=== PATIENT | female | born 1995 | race Caucasian/White ===

== ENCOUNTER 2018-04-30 21:37 | Inpatient (IN) ==
--- NOTE | 2018-04-30 22:03 | ED ---
HPI General Chief Complaint: Diabetic Stated Complaint: Diabetic complaint Time Seen by Provider: 04/30/18 21:47 Source: patient Mode of arrival: ambulatory Limitations: no limitations History of Present Illness HPI narrative: 22-year-old female complains of dizziness, nausea, headache, blurred vision, abdominal pain. Patient started having intermittent nausea and dizziness for the past 2 months. Patient states that the symptom is worse today. Patient started having mild aching headache frontal headache tonight. Patient complains of blurry vision today also. Patient states that she has intermittent abdominal cramping for the past 2 weeks. Patient denies any vomiting or diarrhea. Patient denies any dysuria frequency. Patient denies any vaginal discharge or bleeding. Patient is not sure of being . Patient has history of diabetes and on insulin. Patient status post cholecystectomy. Patient states that her fasting blood sugar this morning was 190. Patient states that her blood sugar during the daytime for the past several days with in the 180s range. Patient normally on Lantus and sliding scale at home. Patient states that she ran out of her Lantus 2 weeks ago. Patient has been covering her blood sugar with regular insulin sliding scale. MD complaint: Reports abdominal pain Onset (ago): week(s) Pain Consistency: intermittent Location: Reports diffuse Severity: mild Severity scale (1-10): 5 Quality: Reports cramping Radiation: Reports none Migration to: Reports no migration Relieving factors: nothing Exacerbating factors: nothing Associated symptoms: Reports nausea Related Data Home Medications Medication Instructions Recorded Confirmed insulin glargine [Lantus U-100 30 unit SUBCUT HS 03/04/18 04/30/18 Insulin] insulin aspart U-100 [Novolog 1 sliding scale dose SUBCUT UD 04/03/18 04/30/18 U-100 Insulin aspart] Allergies Allergy/AdvReac Type Severity Reaction Status Date / Time codeine Allergy Intermediate Dizziness Verified 04/30/18 22:29 Penicillins Allergy Intermediate Hives Verified 04/30/18 22:29 Sulfa (Sulfonamide Allergy Intermediate Hives Verified 04/30/18 22:29 Antibiotics) Review of Systems ROS: all other systems reviewed are negative PMFSH Medical History Medical History Hemorrhoids (Acute) Lichen sclerosus (Acute) Diabetes (Acute) Surgical History Surgical History Hx laparoscopic cholecystectomy (Acute) Hx of hand surgery (Acute) Hx of tonsillectomy (Acute) Social History Social History Substance History: No History of Abuse Second Hand Smoke Exposure: No Smoking Status: Former smoker How Often Do You Have a Drink Containing Alcohol: Monthly or less Immunization History Tetanus Immunization Year if Known: 2016 Exam Narrative Exam Narrative: GENERAL: Well-nourished, well-developed patient. SKIN: Focused skin assessment warm/dry. HEAD: Normocephalic. EYES: No scleral icterus. No injection or drainage. NECK: Supple, trachea midline. No JVD or lymphadenopathy. CARDIOVASCULAR: Regular rate and rhythm without murmurs, gallops, or rubs. RESPIRATORY: Breath sounds equal bilaterally. No accessory muscle use. GASTROINTESTINAL: Abdomen soft, nondistended. MUSCULOSKELETAL: No cyanosis, or edema. BACK: Nontender without obvious deformity. No CVA tenderness. Course Initial Documented Vital Signs Temperature 97.2 F L 04/30/18 21:40 Pulse Rate 91 H 04/30/18 21:40 Respiratory Rate 20 04/30/18 21:40 Blood Pressure 119/74 04/30/18 21:40 Pulse Oximetry 100 04/30/18 21:40 Last Documented Vital Signs Temperature 97.2 F L 04/30/18 21:40 Pulse Rate 88 04/30/18 22:05 Respiratory Rate 20 04/30/18 21:40 Blood Pressure 119/74 04/30/18 21:40 Pulse Oximetry 100 04/30/18 21:40 Medical Decision Making [facility] Narrative Medical decision making narrative: 22-year-old female with headache, nausea, dizziness, blurred vision, abdominal pain. History of diabetes. Insulin bolus and drip started. Potassium 20 mEq p.o. given. Potassium 20 mEq IV given. Medical Screen Exam Complete: Yes Emergency Medical Condition: Yes Differential Diagnosis Differential Diagnosis: Differential diagnosis including viral syndrome, hyperglycemia, DKA, dehydration, electrolyte imbalance, gastritis, PUD, pancreatitis, colitis, UTI, pyelonephritis, nephrolithiasis. Lab Data Result diagrams: 04/30/18 22:15 04/30/18 22:15 POC Results POC Urine Results Negative Lab Results 04/30/18 04/30/18 04/30/18 Range/Units 22:05 22:07 22:15 CBC w Diff Auto diff final WBC 4.1 (4.0-11.0) th/mm3 RBC 5.24 (4.00-5.30) mil/mm3 Hgb 14.6 (11.6-15.3) gm/dL Hct 45.0 (35.0-46.0) % MCV 85.9 (80.0-100.0) fL MCH 27.9 (27.0-34.0) pg MCHC 32.5 (32.0-36.0) % RDW 14.8 (11.6-17.2) % Plt Count 210 (150-450) th/mm3 MPV 9.9 (7.0-11.0) fL Neut % (Auto) 69.1 (16.0-70.0) % Lymph % (Auto) 23.8 (9.0-44.0) % [place] % (Auto) 5.3 (0.0-8.0) % Eos % (Auto) 1.0 (0.0-4.0) % Baso % (Auto) 0.8 (0.0-2.0) % Neut # (Auto) 2.9 (1.8-7.7) th/mm3 Lymph # (Auto) 1.0 (1.0-4.8) th/mm3 [place] # (Auto) 0.2 (0.0-0.9) th/mm3 Eos # (Auto) 0.0 (0.0-0.4) th/mm3 Baso # (Auto) 0.0 (0.0-0.2) th/mm3 WBC Differential . Differential Comment . Puncture Site Patient Temperature VBG pH (7.360-7.400) VBG pCO2 (44-48) mmHG VBG pO2 (35-40) mmHG VBG HCO3 (22-26) mmol/L VBG O2 Saturation (70-76) % VBG O2 Content (9.0-17.0) Vol % VBG Base Excess (-2-2) mmol/L VBG Carboxyhemoglobin (0-4) % VBG Methemoglobin (0-2) % Hemoglobin (12.0-16.0) G/DL Inspired O2 % Critical Value Sodium (136-145) meq/L Potassium (3.5-5.1) meq/L Chloride (98-107) meq/L Carbon Dioxide (21.0-32.0) meq/L Anion Gap (5-15) meq/L BUN (7-18) mg/dL Creatinine (0.50-1.00) mg/dL Estimated GFR (>89) mL/min POC Glucose Greater than 600 H* Greater than 600 H* (68-110) mg/dl Calcium (8.5-10.1) mg/dL Total Bilirubin (0.2-1.0) mg/dL AST (15-37) U/L ALT (10-53) U/L Total Protein (6.4-8.2) g/dL Albumin (3.4-5.0) g/dL Lipase (73-393) U/L Beta-Hydroxybutyric Acd (0.00-0.39) mmol/L Urine Color (Yellw/Straw) Urine Clarity (Clear) Urine pH (5.0-8.5) Ur Specific [place] (1.002-1.035) Urine Protein (Neg-Trace) mg/dL Urine Glucose (UA) (Negative) mg/dL Urine Ketones (Negative) mg/dL Urine Occult Blood (Negative) Urine Nitrate (Negative) Urine Bilirubin (Negative) Urine Urobilinogen (Less than 2) mg/dL Ur Leukocyte Esterase (Negative) Urine RBC (0-3) /hpf Urine WBC (0-5) /hpf Ur Squamous Epith Cells (0-5) /hpf Urine Yeast (None) /hpf Micro UA Comment Ur Microscopic Review Urine Culture Comments 04/30/18 04/30/18 04/30/18 Range/Units 22:15 22:15 22:38 CBC w Diff WBC (4.0-11.0) th/mm3 RBC (4.00-5.30) mil/mm3 Hgb (11.6-15.3) gm/dL Hct (35.0-46.0) % MCV (80.0-100.0) fL MCH (27.0-34.0) pg MCHC (32.0-36.0) % RDW (11.6-17.2) % Plt Count (150-450) th/mm3 MPV (7.0-11.0) fL Neut % (Auto) (16.0-70.0) % Lymph % (Auto) (9.0-44.0) % Cors[place] % (Auto) (0.0-8.0) % Eos % (Auto) (0.0-4.0) % Baso % (Auto) (0.0-2.0) % Neut # (Auto) (1.8-7.7) th/mm3 Lymph # (Auto) (1.0-4.8) th/mm3 [place] # (Auto) (0.0-0.9) th/mm3 Eos # (Auto) (0.0-0.4) th/mm3 Baso # (Auto) (0.0-0.2) th/mm3 WBC Differential Differential Comment Puncture Site L ac Patient Temperature 98.6 VBG pH 7.34 L (7.360-7.400) VBG pCO2 47 (44-48) mmHG VBG pO2 39 (35-40) mmHG VBG HCO3 24 (22-26) mmol/L VBG O2 Saturation 71 (70-76) % VBG O2 Content 13.4 (9.0-17.0) Vol % VBG Base Excess -0.7 (-2-2) mmol/L VBG Carboxyhemoglobin 1.5 (0-4) % VBG Methemoglobin 1.2 (0-2) % Hemoglobin 13.4 (12.0-16.0) G/DL Inspired O2 21 % Critical Value No Sodium 126 L (136-145) meq/L Potassium 3.9 (3.5-5.1) meq/L Chloride 92 L (98-107) meq/L Carbon Dioxide 26.2 (21.0-32.0) meq/L Anion Gap 8 (5-15) meq/L BUN 6 L (7-18) mg/dL Creatinine 1.20 H (0.50-1.00) mg/dL Estimated GFR 57 L (>89) mL/min POC Glucose (68-110) mg/dl Calcium 8.6 (8.5-10.1) mg/dL Total Bilirubin 0.5 (0.2-1.0) mg/dL AST 9 L (15-37) U/L ALT 21 (10-53) U/L Total Protein 7.4 (6.4-8.2) g/dL Albumin 3.8 (3.4-5.0) g/dL Lipase 207 (73-393) U/L Beta-Hydroxybutyric Acd 0.29 (0.00-0.39) mmol/L Urine Color Straw (Yellw/Straw) Urine Clarity Slightly cloudy (Clear) Urine pH 6.5 (5.0-8.5) Ur Specific [place] Less/equal 1.005 (1.002-1.035) Urine Protein Negative (Neg-Trace) mg/dL Urine Glucose (UA) 1000 or greater H (Negative) mg/dL Urine Ketones Negative (Negative) mg/dL Urine Occult Blood Small H (Negative) Urine Nitrate Negative (Negative) Urine Bilirubin Negative (Negative) Urine Urobilinogen 0.2 (Less than 2) mg/dL Ur Leukocyte Esterase Negative (Negative) Urine RBC 4-15 H (0-3) /hpf Urine WBC 6-8 H (0-5) /hpf Ur Squamous Epith Cells 0-5 (0-5) /hpf Urine Yeast Occasional H (None) /hpf Micro UA Comment Culture not ind Ur Microscopic Review Microscopic reviewed Urine Culture Comments Culture not ind Discharge Plan Discharge Disposition Patient Disposition: ED Admit(ED Internal Use Only) Discharge Details Diagnosis: Acute hyperglycemia, Acute hyponatremia Physicians Team ED Provider: Evaristo Rosas Primary Care Provider: Primary Care Physici,Beverly Rxs /Orders / Referrals /Forms Prescriptions: No Action insulin glargine [Lantus U-100 Insulin] 100 unit/mL Solution 30 unit SUBCUT HS RF: 0 insulin aspart U-100 [Novolog U-100 Insulin aspart] 100 unit/mL Solution 1 sliding scale dose SUBCUT UD RF: 0 Discharge Interventions Interventions: Vital Signs Last Done: 04/30/18 22:32 Status ED Status: Pending Admission
[2018-04-30 22:31] LABS: Bilirubin,Urine Negative (Negative); Clarity,Urine Slightly Cloudy (Clear); Leukocyte Esterase,Urine Negative (Negative); Nitrite,Urine Negative (Negative); PH,Urine 6.5 (5.0-8.5); Specific Gravity,Urine Less/Equal 1.005 (1.002-1.035); Urobilinogen,Urine 0.2 mg/dL (Less than 2)
[2018-04-30 22:32] LABS: Baso % (Auto) 0.8 % (0.0-2.0); Color,Urine Straw (Yellw/Straw); Hemoglobin 14.6 gm/dL (11.6-15.3); Lymph % (Auto) 23.8 % (9.0-44.0); Mean Corpuscular HGB Conc 32.5 % (32.0-36.0); Mean Corpuscular Hemoglobin 27.9 pg (27.0-34.0); Mean Corpuscular Volume 85.9 fL (80.0-100.0); Mean Platelet Volume 9.9 fL (7.0-11.0); Mono # (Auto) 0.2 th/mm3 (0.0-0.9); Mono % (Auto) 5.3 % (0.0-8.0); Neut # (Auto) 2.9 th/mm3 (1.8-7.7); Neut % (Auto) 69.1 % (16.0-70.0); Platelet Count 210 th/mm3 (150-450); Red Blood Count 5.24 mil/mm3 (4.00-5.30); Red Cell Distribution Width 14.8 % (11.6-17.2); White Blood Count 4.1 th/mm3 (4.0-11.0)
[2018-04-30 22:36] LABS: Squamous Epithelial Cell,Urine 0-5 /hpf (0-5)
[2018-04-30 22:38] LABS: Chloride 92 meq/L (98-107); Potassium 3.9 meq/L (3.5-5.1); Sodium 126 meq/L (136-145)
[2018-04-30 22:42] LABS: Calcium 8.6 mg/dL (8.5-10.1)
[2018-04-30 22:43] LABS: Albumin 3.8 g/dL (3.4-5.0); Anion Gap 8 meq/L (5-15); Blood Urea Nitrogen 6 mg/dL (7-18); Carbon Dioxide 26.2 meq/L (21.0-32.0); Lipase 207 U/L (73-393)
[2018-04-30 22:45] LABS: Alanine Aminotransferase 21 U/L (10-53); Aspartate Aminotransferase 9 U/L (15-37)
[2018-04-30 22:46] LABS: Beta Hydroxybutyric Acid 0.29 mmol/L (0.00-0.39); Glomerular Filtration Rate 57 mL/min (>89)
[2018-04-30 22:47] LABS: Total Protein 7.4 g/dL (6.4-8.2)
[2018-04-30 22:48] LABS: VBG Base Excess -0.7 mmol/L (-2-2); VBG Blood Gas Oxygen Content 13.4 Vol % (9.0-17.0); VBG PCO2 47 mmHG (44-48); VBG PH 7.34 (7.360-7.400); VBG PO2 39 mmHG (35-40)
[2018-04-30] MEDS ORDERED: Potassium Chlor 20 mEq Premix 20 MEQ/100 ML PIGGYBACK IV.SIG ONE (22:51)
[2018-04-30 22:57] LABS: Alkaline Phosphatase 96 U/L (45-117)
[2018-04-30 22:58] LABS: Glucose,Random 1048 mg/dL (74-106)
[2018-04-30] MEDS ORDERED: Sod Chloride 0.9% Inj 1,000 ML IV.SIG SCH (23:00)
[2018-04-30] MEDS ORDERED: Dextrose 50% in Water 50 ML Vial IV.PUSH PRN (23:02)
[2018-04-30] MEDS ORDERED: Insulin Regular (For Infusion) 100 UNIT in Sodium Chlor 0.9% Inj 99 ML IV.CONT PRN (23:14)
[2018-05-01] MEDS ORDERED: Acetaminophen 325 MG Tablet PO PRN (00:12)
[2018-05-01] MEDS ORDERED: Bisacodyl 10 MG Supp RECTAL PRN (00:12)
[2018-05-01] MEDS ORDERED: Sod Chloride 0.9% Inj 1,000 ML IV.CONT SCH (00:15)
[2018-05-01] MEDS ORDERED: Dextrose 50% in Water 50 ML Vial IV.PUSH PRN (00:46)
[2018-05-01] MEDS: Insulin NovoLOG Aspart Correctional Sugar Inj SQ SCH ×3 (03:37→11:50)
[2018-05-01] MEDS ORDERED: Chlorhexidine Gluconate 2% 1 Pack (2 Cloths) TOPICAL PRN (04:00)
[2018-05-01] MEDS ORDERED: Chlorhexidine Gluconate 2% 1 Pack (2 Cloths) TOPICAL SCH (04:00)
[2018-05-01 05:57] LABS: Anion Gap 8 meq/L (5-15); Blood Urea Nitrogen 7 mg/dL (7-18); Calcium 7.4 mg/dL (8.5-10.1); Carbon Dioxide 22.6 meq/L (21.0-32.0); Chloride 107 meq/L (98-107); Glucose,Random 249 mg/dL (74-106); Potassium 3.1 meq/L (3.5-5.1); Sodium 138 meq/L (136-145)
[2018-05-01 06:00] LABS: Glomerular Filtration Rate Greater Than 89 mL/min (>89)
[2018-05-01 06:11] LABS: Albumin 2.8 g/dL (3.4-5.0); Calcium-Albumin Corrected 8.4 mg/dL (8.5-10.1)
[2018-05-01] MEDS ORDERED: Senna/Docusate Sodium 8.6/50 MG Tablet PO SCH (09:00)
--- NOTE | 2018-05-01 10:22 | P.HPIM ---
History of Present Illness Primary Care Physician: No Primary Care Physician Chief Complaint: Nausea, vomiting History of Present Illness: 22-year-old female with known history of diabetes who usually is on Lantus 30 units daily and sliding scale NovoLog. Patient states that she ran out of Lantus approximately 1 week ago and has been trying to subsidize with the NovoLog. She started developing abdominal discomfort with nausea and vomiting so she came to the hospital for evaluation. Patient had workup done in emergency department and found to have uncontrolled diabetes with pseudohyponatremia. There were no signs of any acidosis or any anion gap. The patient was recommended admission to the hospital for further evaluation and management. At the time of seeing the patient she is only receiving subcutaneous insulin. She is laying in bed comfortable denies any abdominal discomfort. Patient has had excellent response to treatment during the hospital from initial blood glucose greater than 600 now down to 150. Patient indicates that she has been out of her insulin because of insurance reasons. Diagnosis (1) Acute hyperglycemia: (2) Acute hyponatremia: Inpatient Certification Inpatient Certification: I certify that the inpatient services were ordered in accordance with Medicare regulations governing the order. This includes certification that hospital inpatient services are reasonable and necessary and in the case of services not specified as inpatient-only under 42 CFR 419.22(n), that they are appropriately provided as inpatient services in accordance to with the 2-midnight benchmark under 43 CFR 412.3(e) Estimated Total Length of Stay (Days): 3 Plans for Post Hospital Care: Not yet determined Review of Systems Review of Systems: all other systems reviewed are negative Gastrointestinal: Reports nausea and Reports vomiting PMFSH Medical History Medical History Hemorrhoids (Acute) Lichen sclerosus (Acute) Diabetes (Acute) Surgical History Surgical History Hx laparoscopic cholecystectomy (Acute) Hx of hand surgery (Acute) Hx of tonsillectomy (Acute) Social History Social History Substance History: No History of Abuse Second Hand Smoke Exposure: No Smoking Status: Never smoker How Often Do You Have a Drink Containing Alcohol: Monthly or less Recent Travel in [place] within the Last 8 Weeks: No Recent Out of Country Travel within the Last 8 Weeks: No Immunization History Tetanus Immunization: Unable to Assess Tetanus Immunization Year if Known: 2015 Hx Influenza Vaccine This Season: No Medications and Allergies Allergies Allergy/AdvReac Type Severity Reaction Status Date / Time codeine Allergy Intermediate Dizziness Verified 04/30/18 22:29 Penicillins Allergy Intermediate Hives Verified 04/30/18 22:29 Sulfa (Sulfonamide Allergy Intermediate Hives Verified 04/30/18 22:29 Antibiotics) Active Medications: Active Medications Acetaminophen (Tylenol) 650 mg PO Q4H PRN PRN Reason: Temp > 100.4 Al Hydroxide/Mg Hydroxide (Milk Of Magnesia Liq) 30 ml PO Q12H PRN PRN Reason: Mild Constipation Bisacodyl (Dulcolax Supp) 10 mg RECTAL DAILY PRN PRN Reason: SEVERE CONSITIPATION Chlorhexidine Gluconate (Chlorhexidine 2% Cloth) 3 pack TOPICAL DAILY@0400 TANIYA Stop: 05/06/18 03:59 Last Admin: 05/01/18 04:41 Dose: 3 pack Chlorhexidine Gluconate (Chlorhexidine 2% Cloth) 3 pack TOPICAL DAILY@0400 PRN PRN Reason: Extra cloth needed Stop: 05/06/18 03:59 Dextrose (D50w Vial) 50 ml IV.PUSH UNSCH PRN PRN Reason: PER HYPOGLYCEMIA PROTOCOL Dextrose (D50w Vial) 50 ml IV.PUSH UNSCH PRN PRN Reason: PER HYPOGLYCEMIA PROTOCOL Glucagon (Glucagon Inj) 1 mg OTHER PRN PRN PRN Reason: for Hypoglycemia Protocol Insulin Human Regular 100 unit (/ Sodium Chloride) 100 mls @ 6 mls/hr IV.CONT TITRATE PRN; Protocol PRN Reason: See protocol Last Titration: 05/01/18 00:49 Dose: 0 units/hr, 0 mls/hr Sodium Chloride (Ns Inj) 1,000 mls @ 200 mls/hr IV.CONT .Q5H TANIYA Last Admin: 05/01/18 01:13 Dose: 200 mls/hr Insulin Aspart (Novolog Insulin Correctional Sugar Inj) 0 unit SQ ACHS AND 3AM TANIYA; Protocol Last Admin: 05/01/18 08:46 Dose: 1 unit Lactulose (Lactulose Liq) 30 ml PO DAILY PRN PRN Reason: SEVERE CONSITIPATION Ondansetron HCl (Zofran Inj) 4 mg IV.PUSH Q6H PRN PRN Reason: NAUSEA OR VOMITING Senna/Docusate Sodium (Destiny-Colace) 1 tab PO BID [facility] Last Admin: 05/01/18 08:47 Dose: Not Given Sennosides (Senokot) 17.2 mg PO Q12H PRN PRN Reason: Moderate Constipation Sodium Chloride (Ns Flush) 2 ml IV.FLUSH BID [facility] Last Admin: 05/01/18 08:46 Dose: Not Given Sodium Chloride (Ns Flush) 2 ml IV.FLUSH PRN PRN PRN Reason: FLUSH AFTER USING IV ACCESS Physical Exam Vital signs: Vital Signs 04/30/18 21:40 04/30/18 22:05 04/30/18 22:32 Temperature 97.2 F L Pulse Rate 91 H 88 86 Respiratory Rate 20 18 Blood Pressure 119/74 101/67 Pulse Oximetry 100 97 05/01/18 00:37 05/01/18 00:41 05/01/18 01:50 Temperature 98.7 F Pulse Rate 86 74 Respiratory Rate 18 20 Blood Pressure 87/68 L 95/60 L 92/64 L Pulse Oximetry 99 98 05/01/18 02:00 05/01/18 03:00 05/01/18 04:00 Temperature 98.1 F Pulse Rate 76 68 64 Respiratory Rate 12 12 12 Blood Pressure 95/60 L 95/58 L 99/51 L Pulse Oximetry 98 97 99 05/01/18 05:00 05/01/18 06:00 05/01/18 07:00 Temperature Pulse Rate 72 84 74 Respiratory Rate 12 12 13 Blood Pressure 112/70 106/66 91/56 L Pulse Oximetry 98 99 98 05/01/18 07:08 05/01/18 08:00 05/01/18 09:00 Temperature Pulse Rate 74 76 82 Respiratory Rate 9 L 10 L 14 Blood Pressure 91/56 L 84/54 L 97/56 L Pulse Oximetry 97 99 99 Intake & Output 04/30/18 05/01/18 05/01/18 18:59 06:59 18:59 Intake Total 1006 / 1006 Output Total 600 / 600 Balance 406 / 406 Weight 55.8 kg Intake: IV 1006 / 1006 NovoLIN R (IV Infusion) 100 6 / 6 UNIT In NS Inj 99 ML @ 6 UNITS/ HR 6 mls/hr IV.CONT TITRATE PRN Rx#:[id number] NS Inj 1,000 ML @ 1000 mls/hr 1000 / 1000 IV.SIG BOLUS TANIYA Rx#:[id number] Output: Urine 600 / 600 Other: Date of Last Bowel Movement 04/30/18 04/30/18 Weight On Admission 55.8 kg Narrative: GENERAL: Well-developed, well-nourished, in no acute distress. alert and orientated HEENT: Head is normocephalic without any lesions or masses noted. Facial features are symmetric. Eyes: Pupils equal round reactive to light. Extraocular muscles are intact. Conjunctivae were clear. Oropharyngeal: Pharynx without any erythema edema. Tongue is midline without deviation. Buccal mucosa is moist without any masses or lesions NECK: Supple without any masses. Trachea midline no deviation. No JVD, no bruits are appreciated CARDIAC: Regular rhythm, regular rate. S1/S2 are heard. No murmurs gallops or rubs. LUNGS: Clear to auscultation bilaterally. No wheeze, rhonchi or rales. No use of accessory muscles on inspiration or expiration. ABDOMEN: Soft, nontender. Nondistended. Bowel sounds heard in all 4 quadrants. No organomegaly or masses. Negative rebound, negative guarding EXTREMITIES: No edema, pulses are equal bilaterally. No cyanosis or clubbing NEUROLOGY: Mood and affect appear appropriate. Cranial nerves II through XII grossly intact. Muscle strength 5/5 in upper and lower extremities bilaterally. Deep tendon reflexes are 2+ in upper and lower extremities bilaterally. Results Labs CBC & Chem 7: 04/30/18 22:15 05/01/18 04:30 Caprini VTE Risk Assessment Caprini VTE Risk Assessment: No/Low Risk (score <= 1) Caprini Risk Assessment Model: Point Value = 1 Point Value = 2 Point Value = 3 Point Value = 5 Age 41-60 Minor surgery BMI > 25 kg/m2 Swollen legs Varicose veins or History of unexplained or recurrent spontaneous Oral contraceptives or hormone replacement Sepsis (< 1 month) Serious lung disease, including pneumonia (< 1 month) Abnormal pulmonary function Acute myocardial infarction Congestive heart failure (< 1 month) History of inflammatory bowel disease Medical patient at bed rest Age 61-74 Arthroscopic surgery Major open surgery (> 45 min) Laparoscopic surgery (> 45 min) Malignancy Confined to bed (> 72 hours) Immobilizing plaster cast Central venous access Age >= 75 History of VTE Family history of VTE Factor V Leiden Prothrombin [id number] Lupus anticoagulant Anticardiolipin antibodies Elevated serum homocysteine Heparin-induced thrombocytopenia Other congenital or acquired thrombophilia Stroke (< 1 month) Elective arthroplasty Hip, pelvis, or leg fracture Acute spinal cord injury (< 1 month) Prophylaxis Regimen: Total Risk Factor Score Risk Level Prophylaxis Regimen 0-1 Low Early ambulation 2 Moderate Order ONE of the following: *Sequential Compression Device (SCD) *Heparin 5000 units SQ BID 3-4 Higher Order ONE of the following medications: *Heparin 5000 units SQ TID *Enoxaparin/Lovenox 40 mg SQ daily (WT < 150 kg, CrCl > 30 mL/min) *Enoxaparin/Lovenox 30 mg SQ daily (WT < 150 kg, CrCl > 10-29 mL/min) *Enoxaparin/Lovenox 30 mg SQ BID (WT < 150 kg, CrCl > 30 mL/min) AND/OR *Sequential Compression Device (SCD) 5 or more Highest Order ONE of the following medications: *Heparin 5000 units SQ TID (Preferred with Epidurals) *Enoxaparin/Lovenox 40 mg SQ daily (WT < 150 kg, CrCl > 30 mL/min) *Enoxaparin/Lovenox 30 mg SQ daily (WT < 150 kg, CrCl > 10-29 mL/min) *Enoxaparin/Lovenox 30 mg SQ BID (WT < 150 kg, CrCl > 30 mL/min) AND *Sequential Compression Device (SCD) Assessment and Plan (1) Acute hyperglycemia: Code(s): R73.9 - Hyperglycemia, unspecified Status: Acute (2) Acute hyponatremia: Code(s): E87.1 - Hypo-osmolality and hyponatremia Status: Acute Plan Acute hyperglycemia in a patient with known diabetes type 1 Secondary to ran out of her Lantus insulin due to financial/insurance reasons Status post minimal use of IV insulin in the emergency department Accu-Cheks with sliding scale insulin We will start Levemir Diabetic diet The patient's Accu-Cheks are under 300, patient tolerating diet, patient can be discharged. [facility] Hyponatremia Secondary to pseudohyponatremia from uncontrolled diabetes DVT prevention Low risk, early ambulation Discharge Planning: Discharge home in stable condition Activity: Ad rohith. Diet: Diabetic diet Medication per medication reconciliation Follow-up with primary medical doctor in 1 week H&P: Quality VTE Deep Vein Thrombosis/Pulmonary Embolism Present on Admission: No
[2018-05-01] MEDS ORDERED: Potassium Chloride 25 MEQ Effervescent Tablet PO ONE (10:30)
[2018-05-01] MEDS ORDERED: Insulin Detemir Inj 1,000 UNIT/10 ML Vial SQ SCH (10:30)
[2018-05-01 11:57] VITALS: TEMP 99; O2SAT 98
[2018-05-01 14:15] VITALS: BP 97/57; PULSE 80; RESP 12
[2018-05-01 16:09] LABS: Hemoglobin A1c 15.3 % (4.3-6.0)
== END 2018-05-01 16:27 | disposition home or self-care (01) | DRG 638 ==
LOC: PHED 21:37 → PHEDA 23:19 → PHICU 05-01 01:37
PROVIDERS: ADMIT Hospitalist; ATTEND Hospitalist
DX: Z91.14 Patient's other noncompliance with medication regimen; R11.2 Nausea with vomiting, unspecified; Z87.891 Personal history of nicotine dependence; Z90.49 Acquired absence of other specified parts of digestive tract; E87.1 Hypo-osmolality and hyponatremia; Z79.4 Long term (current) use of insulin; Z88.2 Allergy status to sulfonamides; Z88.5 Allergy status to narcotic agent; Z88.0 Allergy status to penicillin; E10.65 Type 1 diabetes mellitus with hyperglycemia
CPT/HCPCS: 80048; 80053; 81001; 82010; 82040; 82803; 82805; 82948; 82962; 83036; 83690; 84443; 84702; 84703; 85025; 87641; 99285; J1815; J1817; J3480; J7030